=== PATIENT | female | born 1945 | race Two or more races ===

== ENCOUNTER 2017-12-14 10:10 | Outpatient (CLI) | payer OTHER | END 2017-12-14 10:17 | disposition home or self-care (01) | LOC: SONOGRAMA 10:10 → MAMO-SONO 10:45 | DX: K76.0 Fatty (change of) liver, not elsewhere classified (principal) ==

== ENCOUNTER 2018-04-25 11:31 | Outpatient (CLI) | payer OTHER | END 2018-04-25 11:39 | disposition home or self-care (01) | LOC: RAD 11:31 | DX: G47.33 Obstructive sleep apnea (adult) (pediatric) (principal); J31.0 Chronic rhinitis; J32.8 Other chronic sinusitis ==

== ENCOUNTER 2020-07-25 15:06 | Outpatient (CLI) | payer OTHER | END 2020-07-25 15:18 | disposition home or self-care (01) | LOC: RAD 15:06 | PROVIDERS: ATTEND Physical Medicine & Rehabilitation | DX: D16.21 Benign neoplasm of long bones of right lower limb (principal); M25.561 Pain in right knee ==

== ENCOUNTER 2021-12-22 09:35 | Outpatient (CLI) | payer OTHER | END 2021-12-22 09:37 | disposition home or self-care (01) | LOC: RAD 09:35 | PROVIDERS: ATTEND Internal Medicine Rheumatology | DX: M15.8 Other polyosteoarthritis (principal); M70.62 Trochanteric bursitis, left hip ==

== ENCOUNTER 2023-03-12 12:53 | Outpatient (CLI) | payer OTHER | END 2023-03-12 13:00 | disposition home or self-care (01) | LOC: RAD 12:53 | PROVIDERS: ATTEND Physical Medicine & Rehabilitation | DX: M54.17 Radiculopathy, lumbosacral region (principal) ==

== ENCOUNTER 2023-07-20 11:01 | Outpatient (CLI) | payer OTHER ==
[2023-07-20 11:58] LABS: HEMATOCRIT 38.2 % (36.0-45.00); HEMOGLOBIN 12.8 g/dL (12.0-15.00); MEAN CELL VOLUME 96.8 fL (80.00-100.00); MEAN CORPUSCULAR HEMOGLOBIN 32.6 pg (27.00-32.0); MEAN CORPUSCULAR HGB CONC 33.6 g/dl (32.0-36.0); PLATELET COUNT 247 K/uL (150-450); RED BLOOD COUNT 3.94 M/uL (4.00-6.00); RED CELL DISTRIBUTION WIDTH 13.4 % (11.5-14.5)
[2023-07-20] MEDS ORDERED: SYNTHROID50 MCG (12:11)
[2023-07-20] MEDS ORDERED: AVALIDE 300-121 EACH (12:11)
[2023-07-20] MEDS ORDERED: OMEPRAZOLE MAGN20 MG (12:12)
[2023-07-20] MEDS ORDERED: CRESTOR10 MG (12:12)
[2023-07-20] MEDS ORDERED: METOPROLOL SUCC25 MG (12:12)
[2023-07-20] MEDS ORDERED: NORVASC2.5 M1 (12:12)
== END 2023-07-20 11:06 | disposition home or self-care (01) ==
LOC: LAB 11:01
PROVIDERS: ATTEND Internal Medicine Geriatric Medicine
DX: R50.9 Fever, unspecified (principal); R05.1 Acute cough

== ENCOUNTER 2023-07-29 13:16 | Outpatient (CLI) | payer OTHER ==
[~2023-07-29 13:16] MED LIST: AVALIDE 300-121 EACH; CRESTOR10 MG; METOPROLOL SUCC25 MG; NORVASC2.5 M1; OMEPRAZOLE MAGN20 MG; SYNTHROID50 MCG
== END 2023-07-29 13:28 | disposition home or self-care (01) ==
LOC: SONOGRAMA 13:16
PROVIDERS: ATTEND General Practice
DX: E06.3 Autoimmune thyroiditis (principal); E03.8 Other specified hypothyroidism; E78.2 Mixed hyperlipidemia; Z68.33 Body mass index [BMI] 33.0-33.9, adult; E66.09 Other obesity due to excess calories; I11.9 Hypertensive heart disease without heart failure; R73.01 Impaired fasting glucose; E04.0 Nontoxic diffuse goiter

== ENCOUNTER 2024-08-14 14:28 | Outpatient (CLI) | payer OTHER | END 2024-08-14 14:33 | disposition home or self-care (01) | LOC: RAD 14:28 | PROVIDERS: ATTEND Orthopaedic Surgery | DX: M25.572 Pain in left ankle and joints of left foot (principal); M79.672 Pain in left foot ==